=== PATIENT | female | born 1985 | race Caucasian/White ===

== ENCOUNTER → 2020-12-16 09:02 | Outpatient (CLI) | payer BC, SELFPAY ==
--- NOTE | ~2020-12-16 | XR_ITS ---
EXAMINATION: XR sacroiliac joints min 3V, XR lumbar spine min 4V EXAM DATE: 12/16/2020 09:26 INDICATION: Lumbago, Sacroiliac joint pain. TECHNIQUE: Lumber spine frontal, lateral, lateral L5-S1 projections for interpretation. Additional l ateral flexion and lateral extension projections obtained. Sacroiliac joints frontal, bilateral obliq ue projections. There are no prior studies for comparison. FINDINGS: There is about 4 mm retrolisthesis L5 on S1 on the extension, and about 2-3 mm anterolisthe sis on the flexion and neutral projections. The vertebral bodies are otherwise aligned. Vertebral bod y and disc heights are well-maintained. Mild lumbar facet arthropathy. Paraspinal soft tissue is unre markable. 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 No erosions or diastases. Sacrum, sacroi liac joints, sacral arcuate lines are intact. IMPRESSION: 1. Mild degenerative changes. Reviewed, dictated and finalized at location A. IMPRESSION: 1. Mild degenerative changes.
== END ==
PROVIDERS: PCP Internal Medicine; Visit Provider Nurse Practitioner Family
DX: M54.5 Low back pain (principal); M53.3 Sacrococcygeal disorders, not elsewhere classified
CPT/HCPCS: 72110; 72202

== ENCOUNTER → 2021-01-19 13:01 | Outpatient (CLI) | payer BC, SELFPAY ==
--- NOTE | ~2021-01-19 | MR_ITS ---
EXAMINATION: MR lumbar spine wo con DATE: 01/19/2021 13:36 INDICATION: Lumbago. TECHNIQUE: Magnetic resonance imaging (MRI) of the lumbar spine was performed without intravenous con trast. Sequences included sagittal T2-weighted FSE, sagittal T2-weighted FS FSE, sagittal T1-weighted FSE, and axial T2-weighted FSE. COMPARISON: Lumbar spine radiographs 12/16/2020 FINDINGS: Bone alignment is normal. Vertebral body heights and intervertebral disc heights are normal . The distal spinal cord signal intensity is normal. The conus medullaris is at L1. The following dis c levels are specifically discussed: L1-L2: The disc does not extend beyond the endplate margin. There is mild bilateral facet joint osteo arthritis. There is no neural foraminal stenosis. There is no central canal stenosis. L2-L3: The disc does not extend beyond the endplate margin. There is mild bilateral facet joint osteo arthritis. There is no neural foraminal stenosis. There is no central canal stenosis. L3-L4: The disc does not extend beyond the endplate margin. There is moderate right and mild left fac et joint osteoarthritis. There is no neural foraminal stenosis. There is no central canal stenosis. L4-L5: The disc does not extend beyond the endplate margin. There is moderate right and mild left fac et joint osteoarthritis. There is no neural foraminal stenosis. There is no central canal stenosis. L5-S1: The disc does not extend beyond the endplate margin. There is mild bilateral facet joint osteo arthritis. There is no neural foraminal stenosis. There is no central canal stenosis. IMPRESSION: 1. Mild to moderate lumbar facet joint osteoarthritis. Reviewed, dictated and finalized at location B.
== END ==
PROVIDERS: PCP Internal Medicine; Visit Provider Nurse Practitioner Family
DX: M53.3 Sacrococcygeal disorders, not elsewhere classified (principal)
CPT/HCPCS: 72148

== ENCOUNTER → 2021-10-20 11:25 | Outpatient (CLI) | payer BC, SELFPAY ==
--- NOTE | ~2021-10-20 | XR_ITS ---
XR cervical spine 4-5V DATE: 10/20/2021 12:19 INDICATION: Neck pain TECHNIQUE: AP, open-mouth, lateral and swimmer views COMPARISON: None FINDINGS: There is a posteriorly and inferiorly displaced fracture through the midportion of the spin ous process of C7. C1 and C2 are normally aligned and the odontoid process is intact. No other fracture or dislocation, locked facet or prevertebral soft tissue swelling. Cervical interspaces are well preserved. IMPRESSION: C7 spinous process fracture Reviewed, dictated and finalized at location A. ZEL TWISTER IMPRESSION: C7 spinous process fracture
--- NOTE | ~2021-10-20 | XR_ITS ---
EXAMINATION: XR shoulder RT min 2V, [id number] DATE: 10/20/2021 12:19 INDICATION: Right shoulder pain post fall TECHNIQUE: 1. AP internally and externally rotated, AP oblique externally rotated and axillary views of the righ t shoulder were obtained. 2. Frontal view of the chest and 3 views of the right ribs were obtained. COMPARISON: None FINDINGS: Right shoulder: Normal alignment. There is sharply angulated cortex at the posterior neck of the lateral right clavic le evident only on the axillary view suspicious for nondisplaced fracture.. Glenohumeral joint space is normal. Acromioclavicular joint space is normal. Soft tissues are unremarkable. Chest and right ribs: Lungs are clear with no focal airspace opacities, pulmonary edema, pleural effusion or pneumothorax. Cardiomediastinal silhouette is normal. No rib fractures identified. IMPRESSION: 1. Nondisplaced buckle fracture at the neck of the lateral right clavicle. 2. No rib fractures or acute cardiopulmonary disease. Reviewed, dictated and finalized at location A. NG MACHINE FEEDER IMPRESSION: 1. Nondisplaced buckle fracture at the neck of the lateral right clavicle. 2. No rib fractures or acute cardiopulmonary disease.
== END ==
PROVIDERS: PCP Internal Medicine; Visit Provider Internal Medicine
DX: S42.001A Fracture of unspecified part of right clavicle, initial encounter for closed fracture (principal); X58.XXXA Exposure to other specified factors, initial encounter
CPT/HCPCS: 71101; 72050; 73030

== ENCOUNTER 2021-12-01 13:36 | Outpatient (CLI) | payer BC, SELFPAY ==
--- NOTE | ~2021-12-01 | XR_ITS ---
EXAMINATION:XR cervical spine 4-5V DATE: 12/01/2021 14:04 INDICATION: Neck pain TECHNIQUE: AP and lateral in neutral, flexion, and extension views of the cervical spine are provided . COMPARISON: 10/20/2021 FINDINGS: There are 2 mm of unchanged anterolisthesis of C6 on C7. No laxity is present with flexion or extension. There is a C7 spinous process fracture with nonunion. No acute fracture is identified. Vertebral body heights and disk spaces are normal. Prevertebral soft tissues are normal. IMPRESSION: 1. C7 spinous process fracture with nonunion. Reviewed, dictated and finalized at location A. R INSERTER
== END 2021-12-01 13:37 | disposition home or self-care (01) ==
PROVIDERS: PCP Internal Medicine
DX: S12.600 Unspecified displaced fracture of seventh cervical vertebra (principal)
CPT/HCPCS: 72050

== ENCOUNTER → 2022-06-01 08:33 | Outpatient (CLI) | payer OTHER, SELFPAY ==
--- NOTE | ~2022-06-01 | US_ITS ---
EXAMINATION: US abdomen complete DATE: 06/01/2022 09:17 INDICATION: Abnormal liver function tests. TECHNIQUE: Multiple grayscale and Doppler ultrasound images of the abdomen were obtained. COMPARISON: None FINDINGS: Abdominal aorta is normal in caliber. Inferior vena cava is normal. The visualized portions of the head, body, and tail of the pancreas are normal. There are multiple hyperechoic masses in the liver measuring up to 1.3 cm. There is normal flow in main portal vein. The gallbladder is normal in size. No gallstones or gallbladder wall thickening. There is no sonographic Fuller sign. The common duct is normal and measures 4 mm. The kidneys are normal in size. The spleen is normal in size. IMPRESSION: 1. Hyperechoic liver masses measuring up to 1.3 cm. In the absence of known malignancy or chronic leland er disease, these findings are likely benign masses such as hemangiomas. Reviewed, dictated and finalized at location A. IMPRESSION: 1. Hyperechoic liver masses measuring up to 1.3 cm. In the absence of known mal ignancy or chronic liver disease, these findings are likely benign masses such as hemangiomas.
== END ==
PROVIDERS: PCP Internal Medicine; Visit Provider Internal Medicine
DX: R74.8 Abnormal levels of other serum enzymes (principal); R16.0 Hepatomegaly, not elsewhere classified
CPT/HCPCS: 76700

== ENCOUNTER 2023-11-29 15:54 | Outpatient (CLI) | payer OTHER, SELFPAY ==
--- NOTE | ~2023-11-29 | XR_ITS ---
EXAMINATION: XR chest 2V Exam Date/Time: 11/29/2023 16:00 TELETYPE MECHANIC HISTORY: nausea and unexplained WEIGHT LOSS Comparison: None. RESULT: Lines, tubes, and devices: None. Lungs and pleura: Clear. Cardiomediastinal silhouette: Normal. Other: No acute osseous or upper abdominal finding. IMPRESSION: No acute cardiopulmonary process. Reviewed, dictated and finalized at location K. TYPE MECHANIC
== END 2023-11-29 15:55 ==
PROVIDERS: PCP Internal Medicine; Visit Provider Internal Medicine
DX: R11.0 Nausea (principal); R63.4 Abnormal weight loss
CPT/HCPCS: 71046

== ENCOUNTER 2024-05-28 15:06 | Outpatient (CLI) | payer OTHER, SELFPAY ==
--- NOTE | ~2024-05-28 | XR_ITS ---
EXAMINATION: XR lumbar spine 2-3V DATE: 05/28/2024 15:50 INDICATION: Low back pain. TECHNIQUE: 3 views of lumbar spine were obtained. COMPARISON: Lumbar spine radiographs 12/16/2020 FINDINGS: Bone alignment is normal. Vertebral body heights and intervertebral disc heights are normal . There is multilevel mild facet joint osteoarthritis. IMPRESSION: 1. Mild lumbar facet joint osteoarthritis. Reviewed, dictated and finalized at location A.
--- NOTE | ~2024-05-28 | XR_ITS ---
EXAMINATION: XR sacroiliac joints min 3V DATE: 05/28/2024 15:51 INDICATION: Low back pain. TECHNIQUE: 3 views of the sacroiliac joints were obtained. COMPARISON: None. FINDINGS: Alignment is normal. No fracture. There is mild osteoarthritis of the sacroiliac joints. IMPRESSION: 1. Mild osteoarthritis of the sacroiliac joints. No evidence of inflammatory arthropathy. Reviewed, dictated and finalized at location A. IMPRESSION: 1. Mild osteoarthritis of the sacroiliac joints. No evidence of inflammatory ar thropathy.
== END 2024-05-28 15:07 ==
PROVIDERS: PCP Internal Medicine; Visit Provider Internal Medicine
DX: M53.3 Sacrococcygeal disorders, not elsewhere classified (principal); M51.36 Other intervertebral disc degeneration, lumbar region
CPT/HCPCS: 72100; 72202

== ENCOUNTER 2024-05-30 12:42 | Outpatient (CLI) | payer OTHER, SELFPAY ==
--- NOTE | ~2024-05-30 | MR_ITS ---
MRI of the brain Clinical History: Migraine headache Technique: Axial and sagittal T1-weighted images were acquired. These were followed by axial T2-weigh isai, diffusion weighted, gradient, and FLAIR images. Following intravenous administration of 10 cc Mu ltiHance gadolinium, T1-weighted fat-sat imaging was performed in the axial and coronal planes. Findings: There is no abnormal signal in the brain parenchyma. No acute infarct, intracranial hemorrh age, or mass lesion. Ventricles and sulci right groin spaces are unremarkable. Orbits are unremarkable. There is right max illary sinus disease. Remaining paranasal sinuses and mastoid air cells are clear. Major intracranial flow voids are intact. Sagittal midline structures are intact. No abnormal postcontrast enhancement identified. IMPRESSION: Right maxillary sinus disease, otherwise unremarkable exam. Reviewed, dictated and finalized at [facility].
== END 2024-05-30 12:43 ==
PROVIDERS: PCP Internal Medicine; Visit Provider Psychiatry & Neurology Neurology
DX: G43.E19 Chronic migraine with aura, intractable, without status migrainosus (principal); J32.0 Chronic maxillary sinusitis
CPT/HCPCS: 70553; A9577

== ENCOUNTER 2024-08-01 05:53 | Day surgery (SDC) | payer OTHER, SELFPAY ==
[2024-07-13 11:49] VITALS: BMI 20.2
[2024-08-01] VITALS (9 sets, daily range): BP systolic 103–135; BP diastolic 67–92; PULSE 69–81; RESP 12–20; TEMP 36.1–36.5; O2SAT 96–100
[2024-08-01] MEDS: SCOPOLAMINE 1 MG PATCH 1 PATCH TRANSDERM (06:36)
[2024-08-01] MEDS: LACTATED RINGERS 1,000 ML 30 ML IV CONT ×2 (06:45→09:02)
--- NOTE | 2024-08-01 07:04 | WPDHPUPDATE1 ---
History and Physical Update Update Date/Time: 08/01/24 07:04 History and Physical has been reviewed, including an updated exam of the patient. There are NO changes in the patient's condition. Risks, benefits, and alternatives have been discussed and questions answered. Patient agrees to proceed with procedure.
--- NOTE | 2024-08-01 07:04 | W.PM.PROC2 ---
Procedure Note - Detailed Date of Procedure 08/01/24 Pre-op Diagnosis Micromastia Post-op Diagnosis Same Procedure Performed Bilateral augmentation mammaplasty Surgeon Nomi De La Garza MD Anesthesia General Findings Bilateral dual plane 1 Jaylen Gaston Softtouch 365cc Right - REF# [id number] SN [id number] Left - REF# [id number] SN [id number] Description of Procedure She is here today for bilateral breast augmentation. Previously and again today the risks, benefits, alternatives were discussed in extensive detail. I wanted her to be very realistic about the risks involved as well as expectations. She understands she has a weak IMF and is at risk of stretch (options discussed). We discussed aftercare and what to monitor for. Made sure answered all of her questions to her satisfaction today and consent was obtained. Marked in the preoperative holding area with their verification. The patient was taken to the operating room placed supine on the operating table. Anesthesia was provided by anesthesiology. A surgical time-out was taken. We cleansed the skin and 1% lidocaine and 0.25% Marcaine with epinephrine was used anesthetize as a field block. She was prepped and draped in a standard sterile fashion. Tegaderm nipple Stephen were placed. A 15 blade used to make an incision along the inframammary fold. Dissection was continued at 45 degree angle until the chest wall as identified. I incised the pectoralis major along its inferior border and completely released the inferior border leaving the medial border intact. I created a subpectoral pocket in the appropriate dimensions based on our preoperative planning for the implant. I then copiously irrigated with saline solution and verified a strict hemostasis. Next the use a triple antibiotic and Betadine containing solution to irrigate the pocket. I washed my gloves with the triple antibiotic and Betadine solution. We washed the implant immediately upon opening it with this solution and only opened it when we needed it. I used implant funnel and no-touch technique. The implant was introduced into the pocket using the funnel. Having verified positioning of the implant this was closed using 2-0 PDS followed by 3-0 Monocryl in a running subcuticular 4-0 Monocryl followed by tissue glue. Fluffs and surgical bra were placed. Patient was awoke and taken to PACU without difficulty. All instrument sponge counts were correct at the end of the case. Estimated Blood Loss 20 Drains No Packing No Pathology None sent Complications No immediate complications Condition Stable Disposition PACU
--- NOTE | 2024-08-01 07:04 | WPDANESEPPF ---
Anes - Initial Pre Proc Eval Procedure: Operation Date: 08/01/24 07:30 Proposed Procedures p Bilateral Breast Augmentation Mammoplasty - Nomi De La Garza MD Date/Time: 08/01/24 07:04 Surgeon: Nomi De La Garza MD Pre Op Diagnosis: Micromastia Patient Data Age: 38 Gender: F Height: 1.68 m Weight: 54.9 kg Last Vital Signs Temp 36.5 C 08/01/24 06:30 Pulse 74 08/01/24 06:30 Resp 14 08/01/24 06:30 BP 103/77 08/01/24 06:30 Pulse Ox 99 08/01/24 06:30 O2 Del Method Room Air 08/01/24 06:30 Allergies Allergy/AdvReac Type Severity Reaction Status Date / Time No Known Allergies Allergy Verified 08/01/24 06:19 Home Medications Medication Instructions Recorded Confirmed Type bupropion HCl 300 mg 24 hr tablet, 300 mg PO QAM 09/01/23 08/01/24 History extended release (Wellbutrin XL) cetirizine 10 mg capsule (Zyrtec) 10 mg PO DAILY PRN Allergy Symptoms 09/01/23 08/01/24 History ivabradine 5 mg tablet (Corlanor) 5 mg PO BID 09/01/23 08/01/24 History rimegepant 75 mg disintegrating 75 mg PO ONCE PRN Migraine Headache 09/01/23 08/01/24 History tablet (Nurtec ODT) atogepant 60 mg tablet (Qulipta) 60 mg PO DAILY 07/13/24 08/01/24 History calcium 500 mg tablet 500 mg PO DAILY 07/13/24 08/01/24 History cholecalciferol (vitamin D3) 25 25 mcg PO DAILY 07/13/24 08/01/24 History mcg (1,000 unit) tablet (Vitamin D3) magnesium 500 mg tablet 500 mg PO DAILY 07/13/24 08/01/24 History multivitamin with minerals-folic 1 tablet PO DAILY 07/13/24 08/01/24 History acid 0.4 mg tablet Patient hx anesthesia problems: none Family hx anesthesia problems: none Results Review: All pre-operative results and documents have been reviewed as part of the pre-operative evaluation. [facility] Past Medical History Medical History Anxiety Depression POTS (postural orthostatic tachycardia syndrome) Surgical History Surgical History History of breast surgery right breast Family History Family History Father Family history of kidney stones Heart disease Afib Grandparent Heart disease Afib Other Heart disease Afib Social History Social History Smoking status: Never smoker Second hand tobacco smoke exposure: Yes Alcohol intake: current Drinks per week: 3 Alcohol use details: socially Substance use: current Substance use type: marijuana Other substance usage details: 1-2X per week Lack of Transportation: No Lack of Food: Never True Current Housing: I Have Housing Concerned About Future Housing: No Difficulty Paying Gas/Electric Bills: No Difficulty Paying for Meds: No Currently Unemployed: No Education: Master's Degree or Higher Difficulty w/ Childcare or Family Care: No Living arrangements: with family Occupation/Education: occupation 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 Informed Consent: The patient's anesthetic plan and its attendant risks and benefits were discussed with the patient/family/POA. Questions were solicited and answers provided to the satisfaction of the patient/family/POA.
--- NOTE | 2024-08-01 07:12 | SUR.PREOP ---
Dr. DeL a Garza at bedside to fernandez pt. This RN at bedside with Dr. De La Garza during marking.
[2024-08-01] MEDS: TRANEXAMIC ACID 1,000 MG/10 ML AMPUL 1000 MG IV PUSH (07:26)
[2024-08-01] MEDS: ceFAZolin SODIUM 2 GM/20 ML SW SYRINGE IV PUSH (07:26)
--- NOTE | 2024-08-01 07:26 | SUR.PREOP ---
500cc fluid bolus given in pre-op per Dr. De La Garza's orders
[2024-08-01] MEDS: BUPivacaine HCL 0.25% PF 30 ML VIAL INFILTRATE (07:37)
[2024-08-01] MEDS: LIDO 1%/EPINEPHRINE 1:100,000 10 ML VIAL 30 ML INFILTRATE (07:37)
[2024-08-01] MEDS: NACL 0.9% IRRIG POUR BOTTLE 900 ML, GENTAMICIN SULFATE INJ 160 MG, ceFAZolin 2 GM, POVI... IRRIGATION (08:09)
[2024-08-01] MEDS: fentaNYL CITRATE INJ (*CRX) 100 MCG/2 ML VIAL 25 MCG IV PUSH ×8 (08:49→09:24)
[2024-08-01] MEDS: ONDANSETRON INJ 4 MG/2 ML VIAL IV PUSH (09:09)
[2024-08-01] MEDS: oxyCODONE HCL (*CRX) 5 MG TAB IR PO (09:40)
--- NOTE | 2024-08-01 09:53 | WPDANESPN ---
Anes - Prog Note Post-Op Date/Time: 08/01/24 09:53 Cardiovascular status: normal Respiratory status: normal Airway patency: baseline Mental status: baseline Post-Op hydration status: normal Vital Signs: Last Vital Signs Temp 36.1 C L 08/01/24 08:34 Pulse 71 08/01/24 09:35 Resp 18 08/01/24 09:35 BP 135/86 08/01/24 09:35 Pulse Ox 100 08/01/24 09:35 O2 Del Method Room Air 08/01/24 09:35 O2 Flow Rate 8 08/01/24 09:00 Pain Score (VAS): 10 I/O: Intake & Output 07/31/24 08/01/24 08/01/24 23:59 07:59 15:59 Intake Total 500 100 Balance 500 100 Patient Feedback: Patient satisfied with anesthetic care.
== END 2024-08-01 10:10 | disposition home or self-care (01) ==
PROVIDERS: PCP Internal Medicine; Visit Provider Surgery Plastic and Reconstructive Surgery
PROC: (CPT 19325; principal; 2024-08-01 07:30)
DX: N64.82 Hypoplasia of breast (principal)
CPT/HCPCS: 19325

== ENCOUNTER 2024-08-03 14:32 | Day surgery (SDC) | payer OTHER, SELFPAY ==
[2024-08-03] VITALS (7 sets, daily range): BP systolic 121–130; BP diastolic 84–96; PULSE 85–97; RESP 12–20; TEMP 36.4–36.6; O2SAT 99–100; BMI 20.1
--- NOTE | 2024-08-03 15:22 | P.PNAN_ITS ---
Anes - Initial Pre Proc Eval Procedure: Operation Date: 08/03/24 16:00 Proposed Procedures p Left Breast Washout, Possible Implant Exchange - Nomi De La Garza MD Date/Time: 08/03/24 15:22 Surgeon: Nomi De La Garza MD Pre Op Diagnosis: left breast hematoma Patient Data Age: 38 Gender: F Height: 1.68 m Weight: 56.7 kg Last Vital Signs Temp 36.6 C 08/03/24 15:16 Pulse 85 08/03/24 15:16 Resp 14 08/03/24 15:16 BP 126/84 08/03/24 15:16 Pulse Ox 100 08/03/24 15:16 O2 Del Method Room Air 08/03/24 15:16 Allergies Allergy/AdvReac Type Severity Reaction Status Date / Time No Known Allergies Allergy Verified 08/01/24 06:19 Home Medications Medication Instructions Recorded Confirmed Type bupropion HCl 300 mg 24 hr tablet, 300 mg PO QAM 09/01/23 08/01/24 History extended release (Wellbutrin XL) cetirizine 10 mg capsule (Zyrtec) 10 mg PO DAILY PRN Allergy Symptoms 09/01/23 08/01/24 History ivabradine 5 mg tablet (Corlanor) 5 mg PO BID 09/01/23 08/01/24 History rimegepant 75 mg disintegrating 75 mg PO ONCE PRN Migraine Headache 09/01/23 08/01/24 History tablet (Nurtec ODT) atogepant 60 mg tablet (Qulipta) 60 mg PO DAILY 07/13/24 08/01/24 History calcium 500 mg tablet 500 mg PO DAILY 07/13/24 08/01/24 History cholecalciferol (vitamin D3) 25 25 mcg PO DAILY 07/13/24 08/01/24 History mcg (1,000 unit) tablet (Vitamin D3) magnesium 500 mg tablet 500 mg PO DAILY 07/13/24 08/01/24 History multivitamin with minerals-folic 1 tablet PO DAILY 07/13/24 08/01/24 History acid 0.4 mg tablet Patient hx anesthesia problems: none Family hx anesthesia problems: none Results Review: All pre-operative results and documents have been reviewed as part of the pre-operative evaluation. [facility] Past Medical History Medical History Anxiety Depression POTS (postural orthostatic tachycardia syndrome) Surgical History Surgical History History of breast surgery right breast Family History Family History Father Family history of kidney stones Heart disease Afib Grandparent Heart disease Afib Other Heart disease Afib Social History Social History Smoking status: Never smoker Second hand tobacco smoke exposure: Yes Alcohol intake: current Drinks per week: 3 Alcohol use details: socially Substance use: current Substance use type: marijuana Other substance usage details: 1-2X per week Lack of Transportation: No Lack of Food: Never True Current Housing: I Have Housing Concerned About Future Housing: No Difficulty Paying Gas/Electric Bills: No Difficulty Paying for Meds: No Currently Unemployed: No Education: Master's Degree or Higher Difficulty w/ Childcare or Family Care: No Living arrangements: with family Occupation/Education: occupation 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 Informed Consent: The patient's anesthetic plan and its attendant risks and benefits were discussed with the patient/family/POA. Questions were solicited and answers provided to the satisfaction of the patient/family/POA.
--- NOTE | 2024-08-03 15:25 | WPDHPUPDATE1 ---
History and Physical Update Update Date/Time: 08/03/24 15:25 History and Physical has been reviewed, including an updated exam of the patient. There are NO changes in the patient's condition. Risks, benefits, and alternatives have been discussed and questions answered. Patient agrees to proceed with procedure.
--- NOTE | 2024-08-03 15:26 | P.HP_ITS ---
H&P: HPI History of Present Illness Date/Time: 08/03/24 15:26 Chief Complaint: History of bilateral breast augmentation with left breast hematoma Narrative: She underwent bilateral breast augmentation on 08/01/2024 by me. Yesterday was seen and doing well; however, towards the end of the day she noticed increasing left breast discomfort. This AM she had signficiant swelling and pain to the left breast and presented to our office. We brought her to [facility] with left breast hematoma. Doing well. No f/c. No n/v. No SOB. No CP. No calf tenderness. Review of Systems Review of Systems: All systems reviewed & are unremarkable except as noted in HPI and below PMFSH Past Medical History Medical History (Updated 08/03/24 @ 15:29 by Nomi De La Garza MD) Anxiety Depression POTS (postural orthostatic tachycardia syndrome) Surgical History Surgical History (Updated 08/03/24 @ 15:29 by Nomi De La Garza MD) History of breast surgery right breast Family History Family History Father Family history of kidney stones Heart disease Afib Grandparent Heart disease Afib Other Heart disease Afib Social History Social History Smoking status: Never smoker Second hand tobacco smoke exposure: Yes Alcohol intake: current Drinks per week: 3 Alcohol use details: socially Substance use: current Substance use type: marijuana Other substance usage details: 1-2X per week Lack of Transportation: No Lack of Food: Never True Current Housing: I Have Housing Concerned About Future Housing: No Difficulty Paying Gas/Electric Bills: No Difficulty Paying for Meds: No Currently Unemployed: No Education: Master's Degree or Higher Difficulty w/ Childcare or Family Care: No Living arrangements: with family Occupation/Education: occupation 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 Spiritual care concerns: No Meds Home Medications and Allergies Home Medications Medication Instructions Recorded Confirmed Type bupropion HCl 300 mg 24 hr tablet, 300 mg PO QAM 09/01/23 08/01/24 History extended release (Wellbutrin XL) cetirizine 10 mg capsule (Zyrtec) 10 mg PO DAILY PRN Allergy Symptoms 09/01/23 08/01/24 History ivabradine 5 mg tablet (Corlanor) 5 mg PO BID 09/01/23 08/01/24 History rimegepant 75 mg disintegrating 75 mg PO ONCE PRN Migraine Headache 09/01/23 08/01/24 History tablet (Nurtec ODT) atogepant 60 mg tablet (Qulipta) 60 mg PO DAILY 07/13/24 08/01/24 History calcium 500 mg tablet 500 mg PO DAILY 07/13/24 08/01/24 History cholecalciferol (vitamin D3) 25 25 mcg PO DAILY 07/13/24 08/01/24 History mcg (1,000 unit) tablet (Vitamin D3) magnesium 500 mg tablet 500 mg PO DAILY 07/13/24 08/01/24 History multivitamin with minerals-folic 1 tablet PO DAILY 07/13/24 08/01/24 History acid 0.4 mg tablet Allergies Allergy/AdvReac Type Severity Reaction Status Date / Time No Known Allergies Allergy Verified 08/01/24 06:19 Vital Signs Vital Signs - 24 hr 08/03/24 15:16 Temperature 36.6 C Pulse Rate 85 Respiratory Rate 14 Blood Pressure 126/84 Pulse Oximetry 100 Oxygen Delivery Room Air Exam Narrative: Alert & Oriented NOD Respiratory unlabored Right breast is healing well. No signs of infection. No hematoma. No seroma. Good color and capillary refill. Left breast swollen, firm, inferior ecchymosis. No calf tenderness. Negative Juan's. Assessment and Plan Assessment and plan (1) Postoperative hematoma of breast: Status: Acute Assessment and Plan: She would like to proceed to the OR for left breast washout hematoma. Risks, benefits, alternatives were discussed in extensive detail. I want to be very realistic about the risks involved as well as expectations. Reviewed co nsent in detail. Discussed aftercare and what to monitor for. Made sure I answered all questions answered to satisfaction and consent obtained.
[2024-08-03] MEDS: fentaNYL CITRATE INJ (*CRX) 100 MCG/2 ML VIAL 50 MCG IV PUSH (15:27)
[2024-08-03] MEDS: LACTATED RINGERS 1,000 ML 30 ML IV CONT (15:27)
[2024-08-03] MEDS: BUPivacaine HCL 0.25% PF 30 ML VIAL 15 ML INFILTRATE (15:51)
[2024-08-03] MEDS: LIDO 1%/EPINEPHRINE 1:100,000 50 ML VIAL 15 ML INFILTRATE (15:51)
[2024-08-03] MEDS: ceFAZolin 2 GM/D5W 50 ML 2 GM/50 ML BAG IVPB (15:51)
[2024-08-03] MEDS: NACL 0.9% IRRIG POUR BOTTLE 900 ML, GENTAMICIN SULFATE INJ 160 MG, ceFAZolin 2 GM, POVI... IRRIGATION (16:28)
--- NOTE | 2024-08-03 16:47 | W.PM.PROC2 ---
Procedure Note - Detailed Date of Procedure 08/03/24 Pre-op Diagnosis left breast hematoma Post-op Diagnosis Same Procedure Performed Evacuation left breast hematoma with implant exchange Surgeon Nomi De La Garza MD Anesthesia General Findings 200 cc old blood. Old implant - intact. SSF-[id number] Replacement implant left breast Jaylen Gaston SoftTouch 365cc REF# [id number] Description of Procedure Preoperatively the risks, benefits, alternatives were discussed in extensive detail. I wanted to be very realistic about the risks involved as well as expectations. I was clear about how we could actually make her worse. Answered all questions to satisfaction. Voiced a clear understanding. Understands hematoma can recur. Consent obtained. She was taken the operating room placed supine on the operating room table. Anesthesia provided by anesthesiology and prepped and draped in a standard sterile fashion. Surgical time-out was taken. 1% lidocaine and 0.25% Marcaine with epinephrine was used to provide a field block. Tegaderm nipple ardon were placed. Fifteen blade used to excise the previous IMF scar on the left. Dissection was continued down until the implant was identified and removed. There was significant hematoma which was removed. I then copiously irrigated with 3 L of saline solution on TUR tubing. Spent extensive time verifying strict hemostasis. I then irrigated with Betadine containing solution. Using a no-touch technique and a Perez funnel the implant was introduced into the pocket. This was closed with 2-0 PDS followed by 3-0 Monocryl and a running subcuticular 4-0 Monocryl followed by tissue glue. Dressings were placed. She was woken taken to the PACU without difficulty. All instrument sponge counts were correct at the end of the case. Estimated Blood Loss 20 Drains No Packing No Pathology None sent Complications No immediate complications Condition Stable Disposition PACU
== END 2024-08-03 18:27 | disposition home or self-care (01) ==
PROVIDERS: PCP Internal Medicine; Visit Provider Surgery Plastic and Reconstructive Surgery
PROC: (CPT 19342; principal; 2024-08-03 16:00)
DX: L76.32 Postprocedural hematoma of skin and subcutaneous tissue following other procedure (principal); Y83.8 Other surgical procedures as the cause of abnormal reaction of the patient, or of later complication, without mention of misadventure at the time of the procedure; F41.9 Anxiety disorder, unspecified; F32.A Depression, unspecified; G90.A Postural orthostatic tachycardia syndrome [POTS]; F12.90 Cannabis use, unspecified, uncomplicated; Z98.890 Other specified postprocedural states; Z82.49 Family history of ischemic heart disease and other diseases of the circulatory system
CPT/HCPCS: 19328; 19325; J0690; J1100; J1580; J1940; J2003; J2004; J2250; J2405; J2704; J3010; J7120